=== PATIENT | female | born 1960 | race Caucasian/White ===

== ENCOUNTER 2017-01-15 16:08 | Emergency (ER) | payer OTHER | END 2017-01-15 18:34 | disposition left against medical advice (07) | LOC: FER 16:08 | DX: H92.01 Otalgia, right ear (principal); Z53.8 Procedure and treatment not carried out for other reasons ==

== ENCOUNTER 2021-12-15 19:29 | Emergency (ER) | payer OTHER ==
[~2021-12-15 19:29] MED LIST: ATARAX25 MG PO; AZELASTINE205.5 MCG/; IBUPROFEN800 MG PO; PERCOCET 5-3251 EACH PO; PRILOSEC20 MG PO; VENTOLIN HFA IN18 GM PO
== END 2021-12-15 22:30 | disposition home or self-care (01) ==
LOC: FER 19:29
DX: M25.571 Pain in right ankle and joints of right foot (principal); M79.671 Pain in right foot; F17.210 Nicotine dependence, cigarettes, uncomplicated; Z88.0 Allergy status to penicillin; Z88.1 Allergy status to other antibiotic agents; Z88.5 Allergy status to narcotic agent; Z88.7 Allergy status to serum and vaccine; X50.1XXA Overexertion from prolonged static or awkward postures, initial encounter; Y93.89 Activity, other specified; Y92.009 Unspecified place in unspecified non-institutional (private) residence as the place of occurrence of the external cause
CPT/HCPCS: 73610; 73630